=== PATIENT | female | born 1935 | race Two or more races ===

== ENCOUNTER 2017-06-17 19:15 | Emergency (ER) | payer MEDICAID ==
--- NOTE | ~2017-06-17 | ER ---
[facility] AGE[facility] 81 Y [address] ROOM: [place] [address] LOCATION: [facility] ADMIT DATE: 06/17/2017 ER/Outpatient Report DISCHARGE DATE: 06/17/2017 FAMILY PHYSICIAN: PHYSICIAN, NO ATTENDING PHYSICIAN: Nirmala Del Cid Time of Arrival: 1915 hours. Time of Evaluation: 1925 hours. CHIEF COMPLAINT: Dog bite occurred on 06/01/2017 in [place]. HISTORY OF PRESENT ILLNESS: This is an 81-year-old female, who is non-Divehi speaking, who presents to the ER with her granddaughter who interprets for her. The patient states that she was bit by her neighbor's dog approximately 16 days ago in [place]. She was evaluated by medical personnel there. They state that she received several shots of antibiotics for and was also placed on 16 days of oral antibiotics as well. They state that she has been running some fevers at home in the last few days, and they have been giving her some Tylenol. The patient states she has had no vomiting. No diarrhea. She states that she does not have any myalgias. They state that dog was up-to-date on his immunizations. ALLERGIES: NO KNOWN ALLERGIES. MEDICATIONS: None. PAST MEDICAL HISTORY: Negative. PAST SURGICAL HISTORY: None. SOCIAL HISTORY: She denies smoking, drug, or alcohol use. REVIEW OF SYSTEMS: All systems were reviewed and negative with the exception of those discussed in the HPI. PHYSICAL EXAMINATION: VITAL SIGNS: Height 5 feet stated, weight 36.7 kg taken, blood pressure is [facility] AGE: 81 Y [address] ROOM: [place], [place] [address] LOCATION: [facility] ADMIT DATE: 06/17/2017 ER/Outpatient Report DISCHARGE DATE: 06/17/2017 FAMILY PHYSICIAN: PHYSICIAN, NO ATTENDING PHYSICIAN: Nirmala Del Cid 126/64, pulse 79, respirations 20, temperature 98.8 degrees tympanically, saturations 98% on room air. Mike Coma Score is 15. GENERAL: An alert, calm, well-developed thin female, in no acute distress. HEENT: Head: Normocephalic. Eyes: Pupils are equal and reactive to light. She does display moist mucous membranes. LUNGS: Clear to auscultation bilaterally. HEART: Irregular rate and rhythm. EXTREMITIES: She does have some swelling noted to her left foot. She does have a wound to the lateral aspect of her ankle just above the malleolus. She also has a T-shaped scabbed over lesion to the back of her calf as well. There is no active drainage to the wound. There is some slight erythema around the wound sites as well. It is slightly tender to palpate. There is no induration. NEUROLOGIC: Cranial nerves 2 through 12 grossly intact. Gait is steady without assistance. She does have good pedal pulses bilaterally. LABORATORY DATA: CBC: White count is 4.6, hemoglobin is 12.0, platelets 115, ANC is 3.0, sedimentation rate is 47. CMS: BUN 25, creatinine 1.1, CRP is 2.64, sodium 141, potassium 3.9, lactate is 1.5, procalcitonin is less than 0.05. X-ray of the left lower extremity shows no abnormality to the bone. IMPRESSION: 16-day-old dog bite to the left lower extremity. ASSESSMENT AND PLAN: Discussed the patient's care with Dr. Del Cid. Dr. Del Cid also evaluated the patient. We did discuss rabies vaccination with the patient, and she would not like to receive those at this time. We did cleanse the wound site and placed the antibiotic ointment and bandage. She needs to keep the wound clean and covered. Continue to monitor her symptoms closely. We would like her to do followup care in the next 2 days as well. We did give the patient a shot of Rocephin 1 g IM here in the emergency room and will send her home with a prescription for Augmentin to use as directed. If her symptoms are to worsen, she should return here to the emergency room. The patient and the patient's family understand and agree with care. SARA BREEN PA-C FOR NIRMALA DEL CID, DO MALHOTRA/david PATIENT'S NAME: VAISHALI HOGAN [facility] AGE: 81 Y [address] ROOM: [place] [address] LOCATION: [facility] ADMIT DATE: 06/17/2017 ER/Outpatient Report DISCHARGE DATE: 06/17/2017 FAMILY PHYSICIAN: PHYSICIAN, NO ATTENDING PHYSICIAN: Nirmala Del Cid /[id number] ATTENDING ADDENDUM: I saw and evaluated the patient. I have discussed with the PA, agree with the PA's findings and plan and agree with the documented note above. I have discussed treatment with the patient and family. She does not want to do rabies shots and reports that she thinks the dogs shots were up to date. The bite did occur in [place] and they have already killed the dog. I did discuss the risks if the dog was not up to date on its shots including severe disability or even . NIRMALA DEL CID DO d: 06/18/17 0023 t: 06/25/17 1122, OUTPATIENT REPORT
[2017-06-17 20:35] LABS: BASOPHIL % 0.4 %; EOSINOPHIL # 0.1 K/uL (0.0-0.5); EOSINOPHIL % 2.2 %; HEMATOCRIT 35.9 % (30.0-46.0); IMMATURE GRANULOCYTE % 0.7 %; LYMPHOCYTE % 21.9 %; MCH 33.4 pg (27.0-34.0); MCHC 33.4 gm/dL (32.0-36.5); MONOCYTE # 0.5 K/uL (0.0-1.0); MONOCYTE % 10.8 %; MPV 9.3 fl (9.4-12.4); NRBC % 0 /100WBC (0-0.00); PLATELET COUNT 215 K/uL (150-450); RBC 3.59 M/uL (3.00-5.00); RDW-CV 13.2 % (11.9-14.6); WBC 4.6 K/uL (4.0-11.0)
[2017-06-17 20:53] LABS: ALBUMIN 3.1 gm/dL (3.5-5.0); ANION GAP 10.9 (10.0-19.0); CALCIUM 8.3 mg/dL (8.5-10.5); CREATININE 1.1 mg/dL (0.5-1.1); POTASSIUM 3.9 mMol/L (3.7-5.1); TOTAL BILIRUBIN 0.3 mg/dL (0.0-1.5); TOTAL PROTEIN 7.3 g/dL (6.0-8.4)
== END 2017-06-17 22:02 | disposition disaster alternative care site (69) ==
LOC: GACC 19:15
PROVIDERS: Physician Assistant Medical
DX: S81.852A Open bite, left lower leg, initial encounter (principal); R50.9 Fever, unspecified; W54.0XXA Bitten by dog, initial encounter
CPT/HCPCS: J0696